=== PATIENT | female | born 1990 | race Caucasian/White ===

== ENCOUNTER → 2021-10-01 14:06 | Observation (INO) | END | disposition home or self-care (01) | LOC: 1NENULAB | PROVIDERS: ADMIT Advanced Practice Midwife; ATTEND Advanced Practice Midwife ==

== ENCOUNTER → 2021-10-16 14:10 | Observation (INO) ==
[2021-10-16 11:56] LABS: Bacteria,Urine Many per hpf (None-Few); Bilirubin,Urine Small (Negative); Blood,Urine Negative (Negative); Clarity,Urine Ex.Turbid (Clear); Color,Urine Dark-Yellow (Yellow); Glucose,Urine (UA) Normal (Normal); Hyaline Casts,Urine Many per lpf (None Seen); Ketones,Urine Trace mg/dL (Negative); Leukocyte Esterase,Urine Small (Negative); Mucus,Urine Many per lpf (None-Few); Nitrite,Urine Negative (Negative); Protein,Urine 70 mg/dL (Neg-Trace); Specific Gravity,Urine 1.028 (1.010-1.025); Squamous Epithelial Cell,Urine Many per hpf (None-Few); WBC,Urine 15-30 per hpf (0-3)
[~2021-10-16 14:10] MED LIST: Ringers Solution, Lactated 1,000 ML IVC SCH
== END | disposition home or self-care (01) ==
LOC: 1NENULAB
PROVIDERS: ADMIT Registered Nurse; ATTEND Registered Nurse

== ENCOUNTER → 2021-11-14 22:23 | Observation (INO) | END | disposition home or self-care (01) | LOC: 1NENULAB | PROVIDERS: ADMIT Advanced Practice Midwife; ATTEND Advanced Practice Midwife ==

== ENCOUNTER → 2021-11-18 18:30 | Observation (INO) | END | disposition home or self-care (01) | LOC: 1NENULAB | PROVIDERS: ADMIT Obstetrics & Gynecology; ATTEND Obstetrics & Gynecology ==

== ENCOUNTER 2021-11-22 03:20 | Inpatient (IN) ==
[2021-11-22] MEDS ORDERED: Metoclopramide 10 MG/2 ML VIAL IVP PRN (04:08)
[2021-11-22] MEDS ORDERED: Ondansetron 4 MG/2 ML VIAL IVP PRN (04:08)
[2021-11-22] MEDS ORDERED: Naloxone 0.4 MG/ML INJ IVP PRN (04:08)
[2021-11-22] MEDS ORDERED: *HR* Nalbuphine 10 MG/ML AMPUL IV PRN (04:08)
[2021-11-22] MEDS ORDERED: Famotidine 20 MG/2 ML VIAL IVP PRN (04:08)
[2021-11-22] MEDS ORDERED: Oxytocin 30 UNIT/503 ML BAG IVC SCH ×2 (04:15→16:33)
[2021-11-22 05:00] LABS: Basophils # 0.1 K/mcL (0.0-0.2); Basophils % 0.4 %; Eosinophils # 0.1 K/mcL (0.0-0.6); Eosinophils % 1.2 %; Hematocrit 33.9 % (35.3-44.9); Hemoglobin 10.8 g/dL (11.5-15.4); Immature Granulocytes % 0.4 % (0-4); Lymphocytes # 2.9 K/mcL (0.6-4.6); Lymphocytes % 25.3 %; Mean Corpuscular HGB Conc 31.9 g/dL (31.6-35.5); Mean Corpuscular Hemoglobin 25.5 pg (28.0-33.3); Mean Platelet Volume 11.6 fL (9.4-12.4); Monocytes # 0.9 K/mcL (0.0-1.3); Monocytes % 7.9 %; Neutrophils # 7.5 K/mcL (1.6-8.9); Platelet Count 278 K/mcL (140-400); Red Blood Count 4.24 M/mcL (3.82-4.97); Red Cell Distribution Width 14.5 % (11.5-14.5); Segmented Neutrophils % 64.8 %; White Blood Count 11.6 K/mcL (4.3-11.1)
[2021-11-22] MEDS: Ringers Solution, Lactated 1,000 ML IVC SCH ×2 (05:20→14:34)
[2021-11-22 05:27] LABS: Influenza A PCR Negative (Negative); Influenza B PCR Negative (Negative); Resp. Syncytial Virus PCR Negative (Negative)
[2021-11-22 05:29] LABS: SARS-CoV-2 by PCR (In House) Negative (Negative)
[2021-11-22] MEDS ORDERED: *HR* FentaNYL (PF) 100 MCG/2 ML VIAL EP ONE (05:33)
[2021-11-22] MEDS ORDERED: EPHEDrine 50 MG/ML VIAL IVP PRN (05:33)
[2021-11-22] MEDS ORDERED: Ropivacaine/PF 0.2% 20 ML VIAL EP ONE (05:33)
[2021-11-22] MEDS ORDERED: Ropivacaine/PF 0.2% 20 ML VIAL ONE (05:36)
[2021-11-22] MEDS ORDERED: *HR* FentaNYL (PF) 100 MCG/2 ML VIAL ONE (05:36)
[2021-11-22] MEDS: Epidural Premix (fent/bupiv) 110 ML EP SCH ×2 (09:14→14:33)
[2021-11-22 09:45] LABS: Amphetamine Screen,Urine Negative ng/mL (Cutoff=1000); Barbiturate Screen,Urine Negative ng/mL (Cutoff=200); Benzodiazepines Screen,Urine Negative ng/mL (Cutoff=200); Cannabinoid Screen,Urine Negative ng/mL (Cutoff = 50); Cocaine Screen,Urine Negative ng/mL (Cutoff= 300); Opiate Screen,Urine Negative ng/mL (Cutoff=300); Phencyclidine Screen,Urine Negative ng/mL (Cutoff=25)
[2021-11-22] MEDS ORDERED: 0.9 % Sodium Chloride 500 ML ONE (10:05)
[2021-11-22] MEDS ORDERED: Ibuprofen 600 MG TABLET PO ONE (14:08)
[2021-11-22] MEDS ORDERED: Benzocaine/Menthol 56 GM AEROSOL SPRAY TP PRN (16:33)
[2021-11-22] MEDS ORDERED: OXYTOCIN/RINGERS LACTATE 10 UNIT/166.6 ML BAG IVC ONE (16:33)
[2021-11-22] MEDS ORDERED: Lanolin 7 G OINT...G. TP PRN (16:33)
[2021-11-22] MEDS ORDERED: Ondansetron ODT 4 MG TAB.RAPDIS SL PRN (16:33)
[2021-11-22] MEDS: Acetaminophen 325 MG TABLET PO SCH (17:39)
[2021-11-22] MEDS: Ibuprofen 600 MG TABLET PO SCH (20:44)
[2021-11-23] MEDS: Acetaminophen 325 MG TABLET PO SCH ×2 (01:03→12:37)
[2021-11-23] MEDS: Ibuprofen 600 MG TABLET PO SCH ×3 (02:49→12:37)
[2021-11-23 03:39] LABS: Basophils % 0.3 %; Eosinophils # 0.1 K/mcL (0.0-0.6); Eosinophils % 0.3 %; Hematocrit 31.8 % (35.3-44.9); Immature Granulocytes % 0.4 % (0-4); Lymphocytes % 18.9 %; Mean Corpuscular HGB Conc 31.4 g/dL (31.6-35.5); Mean Corpuscular Hemoglobin 25.1 pg (28.0-33.3); Mean Corpuscular Volume 79.7 fL (83.0-100.0); Mean Platelet Volume 11.5 fL (9.4-12.4); Monocytes # 1.1 K/mcL (0.0-1.3); Monocytes % 6.6 %; Neutrophils # 11.7 K/mcL (1.6-8.9); Platelet Count 238 K/mcL (140-400); Red Blood Count 3.99 M/mcL (3.82-4.97); Red Cell Distribution Width 14.4 % (11.5-14.5); Segmented Neutrophils % 73.5 %; White Blood Count 15.9 K/mcL (4.3-11.1)
[2021-11-23 07:28] VITALS: BP 126/73; PULSE 79; TEMP 97.6; O2SAT 98
[2021-11-23] MEDS ORDERED: Prenatal Vit/FA 1 EACH TABLET PO SCH (09:00)
== END 2021-11-23 15:32 | disposition home or self-care (01) | DRG 807 ==
LOC: 1NENULAB → 1NENUOBS 16:23
PROVIDERS: ADMIT Student in an Organized Health Care Education/Training Program; ATTEND Student in an Organized Health Care Education/Training Program

== ENCOUNTER 2021-11-26 19:29 | Observation (INO) ==
[2021-11-26] MEDS ORDERED: Isovue-370 500 ML BOTTLE IVP ONE (19:58)
[2021-11-26 20:10] LABS: Hematocrit 33.5 % (35.3-44.9); Hemoglobin 10.4 g/dL (11.5-15.4); Mean Corpuscular Hemoglobin 25.2 pg (28.0-33.3); Mean Corpuscular Volume 81.3 fL (83.0-100.0); Mean Platelet Volume 9.5 fL (9.4-12.4); Platelet Count 288 K/mcL (140-400); Red Blood Count 4.12 M/mcL (3.82-4.97); Red Cell Distribution Width 14.6 % (11.5-14.5)
[2021-11-26 20:11] LABS: White Blood Count 7.9 K/mcL (4.3-11.1)
[2021-11-26 20:21] LABS: Prothrombin Time 11.4 Seconds (9.4-12.1)
[2021-11-26 20:23] LABS: Activated Partial Thrombo Time 30.5 Seconds (26.0-36.0)
[2021-11-26 20:26] LABS: BUN/Creatinine Ratio 10 (6-26); Blood Urea Nitrogen 11 mg/dL (6-20); Calcium 9.1 mg/dL (8.6-10.3); Carbon Dioxide 26 mEq/L (23-29); Chloride 106 mEq/L (98-107); Creatine Kinase 72 Units/L (30-223); Ethanol < 10 mg/dL (Less than 10); Glucose 85 mg/dL (70-105); Osmolality,Calculated 289 (280-300); Sodium 140 mEq/L (136-145); eGFR For African Americans > 60 (> 60); eGFR For Non-African Americans 60 (> 60)
[2021-11-26] MEDS ORDERED: predniSONE 20 MG TABLET PO ONE (21:04)
[2021-11-26 21:05] LABS: Troponin I < 0.03 ng/mL (< 0.04)
[2021-11-26] MEDS ORDERED: Ondansetron 4 MG/2 ML VIAL IVP PRN (23:15)
[2021-11-26] MEDS ORDERED: Naloxone 0.4 MG/ML INJ IVP PRN (23:15)
[2021-11-26] MEDS ORDERED: Melatonin 3 MG TABLET PO PRN (23:15)
[2021-11-26] MEDS ORDERED: Acetaminophen 325 MG TABLET PO PRN (23:15)
[2021-11-26] MEDS ORDERED: Perflutren Lipid Microsphere 1.3 ML in 0.9 % Sodium Chloride 8.7 ML IVP PRN (23:17)
[2021-11-27 01:08] LABS: Bilirubin,Urine Negative (Negative); Blood,Urine Large (Negative); Clarity,Urine Turbid (Clear); Color,Urine Colorless (Yellow); Glucose,Urine (UA) Normal (Normal); Ketones,Urine Negative (Negative); Leukocyte Esterase,Urine Large (Negative); Nitrite,Urine Negative (Negative); PH,Urine 6.5 pH Units (5.0-8.0); Protein,Urine 50 mg/dL (Neg-Trace); RBC,Urine TNTC per hpf (0-3); Specific Gravity,Urine 1.023 (1.010-1.025); Squamous Epithelial Cell,Urine Few per hpf (None-Few); Urobilinogen,Urine Normal (Normal); WBC,Urine TNTC per hpf (0-3)
[2021-11-27 05:20] LABS: Basophils % 0.2 %; Eosinophils # 0.1 K/mcL (0.0-0.6); Eosinophils % 0.7 %; Hematocrit 34.6 % (35.3-44.9); Hemoglobin 10.7 g/dL (11.5-15.4); Lymphocytes # 1.3 K/mcL (0.6-4.6); Lymphocytes % 14.4 %; Mean Corpuscular HGB Conc 30.9 g/dL (31.6-35.5); Mean Corpuscular Hemoglobin 24.9 pg (28.0-33.3); Mean Corpuscular Volume 80.7 fL (83.0-100.0); Mean Platelet Volume 10.1 fL (9.4-12.4); Monocytes # 0.2 K/mcL (0.0-1.3); Monocytes % 2.2 %; Neutrophils # 7.4 K/mcL (1.6-8.9); Platelet Count 299 K/mcL (140-400); Red Blood Count 4.29 M/mcL (3.82-4.97); Red Cell Distribution Width 14.7 % (11.5-14.5); Segmented Neutrophils % 81.5 %; White Blood Count 9.1 K/mcL (4.3-11.1)
[2021-11-27 05:26] LABS: INR 1.1; Prothrombin Time 11.8 Seconds (9.4-12.1)
[2021-11-27 05:47] LABS: Chol/HDL Ratio 4.1 (0-4.9)
[2021-11-27 05:53] LABS: Alanine Aminotransferase 33 Units/L (7-52); Albumin 3.8 g/dL (3.5-5.7); Albumin/Globulin Ratio 1.1 (1.1-2.2); Alkaline Phosphatase 123 Units/L (34-104); Aspartate Amino Transferase 30 Units/L (13-39); BUN/Creatinine Ratio 18 (6-26); Bilirubin,Total 0.6 mg/dL (0.3-1.0); Blood Urea Nitrogen 14 mg/dL (6-20); Calcium 9.4 mg/dL (8.6-10.3); Carbon Dioxide 20 mEq/L (23-29); Chloride 106 mEq/L (98-107); Globulin 3.5 g/dL (2.4-3.5); Glucose 122 mg/dL (70-105); Osmolality,Calculated 288 (280-300); Phosphorous 3.9 mg/dL (2.7-4.5); Potassium 4.5 mEq/L (3.5-5.1); Sodium 138 mEq/L (136-145); Total Protein 7.3 g/dL (6.4-8.9); Troponin I < 0.03 ng/mL (< 0.04); eGFR For African Americans > 60 (> 60); eGFR For Non-African Americans > 60 (> 60)
[2021-11-27 06:24] LABS: Estimated Average Glucose 114 mg/dl; Hemoglobin A1C 5.6 %
[2021-11-27 11:43] VITALS: BP 136/87; PULSE 56; TEMP 98.1; O2SAT 98
== END 2021-11-27 15:15 | disposition home or self-care (01) ==
LOC: 3BNU 19:29 → EMEROOARM 19:29 → SUATTDRO 21:24 → 3BNU 23:07
PROVIDERS: ADMIT Family Medicine; ATTEND Internal Medicine